=== PATIENT | female | born 1990 | race Two or more races ===

== ENCOUNTER 2018-09-09 05:53 | Emergency (ER) | payer OTHER ==
[~2018-09-09] VITALS: Ht 165.1 cm; Wt 65.8 kg
[2018-09-09] MEDS ORDERED: KETO10TA2 PO (07:29)
== END 2018-09-09 07:42 | disposition home or self-care (01) ==
LOC: ER 05:53
DX: S52.592A Other fractures of lower end of left radius, initial encounter for closed fracture (principal); S52.612A Displaced fracture of left ulna styloid process, initial encounter for closed fracture; W18.09XA Striking against other object with subsequent fall, initial encounter; Y93.89 Activity, other specified; Y92.89 Other specified places as the place of occurrence of the external cause; Y99.8 Other external cause status